=== PATIENT | female | born 1985 | race Hispanic/Latino ===

== ENCOUNTER 2022-01-29 07:15 | Inpatient (IN) | payer OTHER ==
[2022-01-29] MEDS ORDERED: CARBOPROST TROME 250 MCG/ML IM PRN (07:31)
[2022-01-29] MEDS ORDERED: BUTORPHANOL 1 MG/ML INJ IV PRN (07:31)
[2022-01-29] MEDS ORDERED: Ringers Lactate 1,000 ML IV PRN (07:31)
[2022-01-29] MEDS ORDERED: METHYLERGONOVINE 0.2MG/ML AMP IM PRN (07:31)
[2022-01-29] MEDS ORDERED: PROMETHAZINE INJ 25 MG/ML AMP IM PRN (07:31)
[2022-01-29] MEDS ORDERED: Ringers Lactate 1,000 ML IV SCH (08:00)
[2022-01-29] MEDS ORDERED: OXYTOCIN/LR 20 UNIT/1,000 ML BAG IV SCH ×3 (08:00→11:00)
[2022-01-29 08:27] LABS: Absolute Lymphocytes (CBC) 2.5 K/uL (0.7-4.9); Hematocrit 35.3 % (36.0-45.0); Lymphocytes % 17.7 % (15.3-44.8); MPV 10.6 fL (7.6-11.3); RBC Red Blood Cell Count 4.27 M/uL (3.86-4.86)
[2022-01-29 08:31] LABS: Urine Appearance Clear (Clear); Urine Bilirubin Negative (Negative); Urine Blood 3+ (Negative); Urine Glucose Negative (Negative); Urine Protein Negative (Negative)
[2022-01-29] MEDS ORDERED: FENTANYL CITR 100 MCG/2 ML ONE (08:33)
[2022-01-29] MEDS ORDERED: LIDOCAINE 1% MPF 5 ML VIAL ONE (08:33)
[2022-01-29 08:34] LABS: Urine Color DK YELLOW (Yellow); Urine Microscopic Reflex ORDER UMIC
[2022-01-29 08:48] LABS: Urine Bacteria <20 /HPF (<20)
[2022-01-29 09:10] VITALS: BMI 34.2
--- NOTE | 2022-01-29 09:48 | PN ---
The patient is very good control, is requesting epidural. She is a good 7, possibly 8, -1 station. Baby looks good. Maya regularly. We will order epidural, begin hydration. After epidural if she is not complete, we will start light Pitocin. Anticipate delivery relatively soon. ALESHA/LUANNE Voice ID: [id number] Report ID: [id number]
[2022-01-29] MEDS ORDERED: LIDOCAINE 1% MPF 30 ML VIAL ONE (09:56)
[2022-01-29] MEDS ORDERED: LIDOCAINE 2% INJ, 20 mL 0 ML ONE (10:30)
[2022-01-29] MEDS ORDERED: DOCUSATE NA/SENNA CONC 1 TAB PO PRN (10:39)
[2022-01-29] MEDS ORDERED: DIPHENHYDRAMINE 25 MG TAB/CAP PO PRN (10:39)
[2022-01-29] MEDS ORDERED: Oxycodone HCl/Acetaminophen 1 TAB TAB PO PRN (10:39)
[2022-01-29] MEDS ORDERED: BISACODYL 10 MG RECTAL SUPP PR PRN (10:39)
[2022-01-29] MEDS ORDERED: ACETAMINOPHEN 500 MG TAB PO PRN (10:39)
--- NOTE | 2022-01-29 13:04 | OP ---
Surgeon: Steven Fortune MD Procedure In Detail: A 36-year-old, 3, para 2, came in with spontaneous labor, spontaneous r upture of membranes, at 37 weeks. Had spinal block anesthesia. Progressed rapidly. Second stage of about 15 to 20 minutes. Spontaneous vaginal delivery of a 7-pound 7-ounce female, Apgars 9 and 9. Mild shoulder dystocia. Flexion of the legs and suprapubic pressure. Afforded easy delivery. One f irst-degree laceration, sutured with 2 okfiol-ja-neult stitches of 2-0 chromic. Quiroz delivery of t he placenta, which was inspected and noted to be intact and normal. Uterus contracted down well with IV drip Pitocin and massage. Estimated blood loss 350 cc. The patient tolerated all procedures wel l. She is Rh positive, immune to rubella, negative strep, negative COVID. Final Diagnoses: Term intrauterine at 37 weeks, spontaneous labor, vaginal delivery, spina l block anesthesia. Mild shoulder dystocia. ALESHA/LUANNE Voice ID: [id number] Report ID: [id number]
[2022-01-29] MEDS ORDERED: METHYLERGONOVINE 0.2MG/ML AMP IM ONE (13:06)
[2022-01-29] MEDS ORDERED: ONDANSETRON 4 MG/2 ML VIAL IV ONE (16:00)
[2022-01-29] MEDS: Oxycodone HCl/Acetaminophen 1 TAB TAB PO PRN (17:48)
[2022-01-29] MEDS: IBUPROFEN 600 MG TAB PO PRN (19:27)
[2022-01-30] MEDS: Oxycodone HCl/Acetaminophen 1 TAB TAB PO PRN ×2 (00:05→04:59)
--- NOTE | 2022-01-30 08:19 | DS ---
Hospital Course: 36-year-old 3, para 2, 37 weeks gestation, came in with leaking membranes a nd in active labor 6-7 cm on admission. The patient had spinal block anesthesia, which gave good eff ect. Second stage of about 15 to 20 minutes. Spontaneous vaginal delivery of a 7-pound 7-ounce fema le, Apgars 9 and 9. Very small first-degree laceration requiring 2 stitches of 2-0 chromic local inf iltration. Schultze delivery of the placenta, less than 400 cc blood loss. Placenta inspected and n oted to be intact and normal. The patient is Rh positive, immune to rubella, negative COVID, negativ e strep. ; afebrile, ambulating, voiding. Lochia is normal. Will be dismissed later ami coffey. Report back to my office in 6 weeks for followup. To report any temperature elevation of 100 deg chau or greater, severe pain, heavy bleeding, or any other type of abnormality. Tdap has been discus sed during the and I think the patient has been offered a Tdap. If not, she will be offere d it before she leaves. Final Diagnoses: Intrauterine gestation at 37 weeks, spontaneous labor, vaginal delivery. ALESHA/MODL Voice ID: [id number] Report ID: [id number]
[2022-01-30] MEDS: IBUPROFEN 600 MG TAB PO PRN (10:16)
[2022-01-30 11:39] VITALS: BP 117/74; TEMP 98
[2022-01-30 20:42] LABS: RPR (Rapid Plasma Reagin) NON-REACT (NON-REACT)
--- NOTE | 2022-02-03 12:45 | PREOPHP ---
Date of Admission: 01/29/2022 History Of Present Illness: A 36-year-old, 3, para 2, 37 weeks, came in active labor, contra cting every 5 minutes. 6 cm, 90% effaced, -1 station. Membranes still intact, bloody show. FHTs no rmal, reactive. Admit for stabilization and delivery. Family History: Father with hypertension. Mother with diabetes. Past Medical History: No serious medical illnesses. Past Surgical History: No previous surgeries. Allergies: NO ALLERGIES. Medications: The patient has been taking vitamins, is the only medicines prior to admission . Social History: Does not smoke. Physical Examination: HEENT: Clear. Pupils equal, round, reactive to light and accommodation. Conjunctivae well perfused . No oral, lingual, or buccal lesions. Chest and Lungs: Clear. Heart: Without murmurs, thrills, heaves, or rubs. Breasts: Not examined today. Negative on previous exams. Abdomen: Term size. Extremities: Clear without edema, cyanosis, or clubbing. Pelvic Exam: As stated. Assessment And Plan: We will admit for stabilization and once IV is started, rupture of membranes. She is strep negative. COVID status is pending. ALESHA/LUANNE Voice ID: [id number]
== END 2022-01-30 13:39 | disposition home or self-care (01) | DRG 833 ==
LOC: L&D 07:15 → 2ND-WC 07:19
PROVIDERS: ADMIT Specialist; ATTEND Specialist
PROC: 0HQ9XZZ Repair Perineum Skin, External Approach (ICD-10-PCS; principal; 2022-01-29)
DX: O66.0 Obstructed labor due to shoulder dystocia (principal); O70.0 First degree perineal laceration during delivery; Z3A.37 37 weeks gestation of pregnancy; Z37.0 Single live birth; Z20.822 Contact with and (suspected) exposure to COVID-19
CPT/HCPCS: 36415; 81003; 81015; 85025; 86592; 86850; 86900; 86901; J2210; J2405; J2590; J3010; J7120; U0003